=== PATIENT | female | born 1955 | race Caucasian/White ===

== ENCOUNTER → 2016-12-25 | Outpatient (CLI) | payer BC ==
[~2016-12-25] MED LIST: PANT40TA PO; SLFEC500 PO
[2016-12-25 17:34] LABS: COMPLETE YES; LYMPH % 13.7 %; LYMPH ABS # 0.68 K/uL (1.2-3.4); MEAN CELL VOLUME 85.1 fL (80-100); MEAN CORPUSCULAR HEMOGLOBIN 28.5 pg (25-34); MEAN CORPUSCULAR HGB CONC 33.5 g/dl (32-36); MEAN PLATELET VOLUME 9.3 fL (7.4-10.4); NEUT % 85.3 %; PLATELET COUNT 255 K/uL (130-400); RED BLOOD COUNT 4.35 M/uL (4.2-5.4); WHITE BLOOD COUNT 4.97 K/uL (4.8-10.8)
[2016-12-25 18:01] LABS: BLOOD UREA NITROGEN 25 mg/dl (7-18); CREATININE 0.89 mg/dl (0.60-1.20)
[2016-12-25 18:11] LABS: THYROID STIMULATING HORMONE 0.801 uIu/ml (0.300-4.500)
[2016-12-25 18:51] LABS: LYME DISEASE AB IGG NEG (NEG); LYME DISEASE AB IGM NEG (NEG)
[2017-01-01 10:16] LABS: ANTI-68 kd Ag (HSP-70 Ab) NEGATIVE (NEGATIVE)
== END | disposition home or self-care (01) ==
LOC: C.LABBFT 11:04
PROVIDERS: ATTEND Physician Assistant
DX: H91.8X1 Other specified hearing loss, right ear (principal); H90.71 Mixed conductive and sensorineural hearing loss, unilateral, right ear, with unrestricted hearing on the contralateral side

== ENCOUNTER → 2017-01-15 | Outpatient (CLI) | payer BC ==
[~2017-01-15] MED LIST changes: +GADAVIST IV PRN
--- NOTE | 2017-01-15 14:23 | DIAGNOSTIC IMAGING REPORT ---
Brain and internal auditory canal MRI WITH AND WITHOUT CONTRAST HISTORY: W/IAC'S HEARING LOSS RIGHT EAR TECHNIQUE: Multiplanar multisequence MRI of the brain and internal auditory canals were performed both before and after the intravenous administration of contrast. COMPARISON STUDY: None. FINDINGS: There are no areas of restricted diffusion to suggest acute infarction. The midline structures are intact. Mild mucosal thickening within the maxillary sinuses. Near-complete opacification the right mastoid air cells. The right mastoid air cells and fluid levels and patchy areas of enhancement. The left mastoid air cells are clear. The ventricles and sulci are within normal limits for age. There is no mass, hematoma, midline shift. The major vascular flow-voids at the skull base are well maintained. Postcontrast sequences show no areas of abnormal enhancement. The right middle ear cavity appears clear. The bilateral internal auditory canals show no abnormal enhancement or masses. IMPRESSION: 1. Near complete opacification of the right mastoid air cells which demonstrate fluid levels and patchy areas of enhancement. This favors a mastoid effusion in the setting of an infectious process. 2. Otherwise, no acute intracranial abnormality. 3. Normal bilateral internal auditory canals. Electronically signed by: Baron Bush M.D. 01/15/2017 2:22 PM Dictated Date/Time: 01/15/2017 10:49 AM
== END | disposition home or self-care (01) ==
LOC: C.OPENMRI 08:41
PROVIDERS: ATTEND Physician Assistant
DX: H91.91 Unspecified hearing loss, right ear (principal)

== ENCOUNTER → 2017-02-14 | Outpatient (CLI) | payer BC ==
[~2017-02-14] MED LIST changes: -GADAVIST IV PRN
--- NOTE | 2017-02-14 14:39 | DIAGNOSTIC IMAGING REPORT ---
TEMPORAL BONE CT HISTORY: 65.111 Acute mucoid otitis media of right ear H90.71 Mixed hearing TECHNIQUE: Multiaxial CT images of the temporal bones were performed reformatted in the coronal plane without the use of contrast. COMPARISON STUDY: Brain and internal auditory canal MRI 01/15/2017. FINDINGS: On the right, the external auditory canal is patent. The middle ear cavity is clear. The ossicles are normally aligned. No evidence for inner ear dysplasia. The 7th cranial nerve describes a normal course. There are few partially opacified right mastoid air cells. This has improved. No erosive changes identified within the right mastoid. The scutum is intact. On the left, the external auditory canal is patent. The middle ear cavity is clear. The ossicles are normally aligned. No evidence for inner ear dysplasia. The 7th cranial nerve describes a normal course. The mastoid air cells are clear. No erosive changes.. The scutum is intact. IMPRESSION: 1. Improvement in the small right mastoid effusion. No erosive changes identified. 2. Normal left temporal bone. Electronically signed by: Baron Bush M.D. 02/14/2017 2:38 PM Dictated Date/Time: 02/14/2017 2:33 PM
== END | disposition home or self-care (01) ==
LOC: C.CTS 14:07
PROVIDERS: ATTEND Physician Assistant
DX: H65.111 Acute and subacute allergic otitis media (mucoid) (sanguinous) (serous), right ear (principal); H90.71 Mixed conductive and sensorineural hearing loss, unilateral, right ear, with unrestricted hearing on the contralateral side; H91.8X1 Other specified hearing loss, right ear

== ENCOUNTER → 2017-10-02 | Outpatient (CLI) | payer BC ==
--- NOTE | 2017-10-02 15:09 | MAMMOGRAPHY REPORT ---
BILATERAL DIGITAL SCREENING MAMMOGRAM TOMOSYNTHESIS WITH CAD: 10/02/2017 CLINICAL HISTORY: Routine screening. Patient has no complaints. TECHNIQUE: Breast tomosynthesis in addition to standard 2D mammography was performed. Current study was also evaluated with a Computer Aided Detection (CAD) system. COMPARISON: Comparison is made to exam dated: 02/01/2013 mammogram - [facility]. BREAST COMPOSITION: The tissue of both breasts is heterogeneously dense, which may obscure small mas ses. FINDINGS: No suspicious masses, calcifications, or areas of architectural distortion are noted in ei ther breast. There has been no significant interval change compared to prior exams. Bilateral benign vascular calcifications are again noted. IMPRESSION: ACR BI-RADS CATEGORY 2: BENIGN There is no mammographic evidence of malignancy. A 1 year screening mammogram is recommended. The pa tient will receive written notification of the results. Approximately 10% of breast cancers are not detected with mammography. A negative mammographic report should not delay biopsy if a clinically suggestive mass is present. Floridalma Goldsmith M.D. ah/:10/02/2017 12:32:56 Lead Case Manager: Paradise BOWIER, M, [facility] letter sent: Normal 1/2 BI-RADS Code: ACR BI-RADS Category 2: Benign
== END | disposition home or self-care (01) ==
LOC: C.MAMM 08:14
PROVIDERS: ATTEND Physician Assistant
DX: Z12.31 Encounter for screening mammogram for malignant neoplasm of breast (principal)